=== PATIENT | female | born 1960 | race Caucasian/White ===

== ENCOUNTER 2019-03-28 00:26 | Observation (INO) | payer OTHER ==
[2019-03-28] MEDS ORDERED: Sodium Chloride 0.9% 10 ML Syringe FLUSH PRN (00:29)
[2019-03-28] MEDS ORDERED: LORazepam 2 MG/ML SDV IVPUSH ONE (00:32)
--- NOTE | 2019-03-28 01:18 | EDM.PDOC ---
ED HPI GENERAL MEDICAL PROBLEM - General Chief Complaint: General Stated Complaint: Not Feeling Well Time Seen by Provider: 03/28/19 00:26 Source of Information: Reports: Patient History Limitations: Reports: No Limitations - History of Present Illness INITIAL COMMENTS - FREE TEXT/NARRATIVE: Pt. presents to ER with complaints of weakness, fatigue, difficulty standing due to weakness in legs, "shock" sensations throughout her body, and anxiety/ generally feeling unwell. She states that she has been experiencing these symptoms almost constantly since starting Zoloft 3 days ago. She states that she has perviously been on zoloft and stopped taking it. She states that she tolerated the medication before. She complains of urinary frequency. She was seen for this in the clinic recently and states that her UA was negative. She states that she has not been experiencing any fever or chills. No cough. She does complain of some intermittent chest tightness since taking the medication, but was not experiencing it tonight. Pt. states that she was asleep and she woke with a "start" after being a sleep for several hours. She was concerned she had had a seizure or stoke, given the signs of neurological involvement. She states that the shock-like sensations are global and not unilateral. Denies any difficulty with unilateral weakness, confusion, difficulty with speech, or facial drooping. Onset: Today Onset Date: 03/25/19 Location: Reports: Generalized - Related Data Allergies Allergy/AdvReac Type Severity Reaction Status Date / Time morphine AdvReac Intermediate Nausea and Verified 03/28/19 01:06 Vomiting Home Meds: Home Meds Multivitamin [Daily Multiple Vitamin] 1 tab PO DAILY 05/31/16 [History] Cholecalciferol (Vitamin D3) [Vitamin D3] 2,000 unit PO DAILY 03/28/19 [History] Sertraline [Zoloft] 25 mg PO DAILY 03/28/19 [History] Past Medical History Other HEENT History: PRESBYOPIA. ASTIGMATISM. 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 Genitourinary History: Reports: None [employer] History: Musculoskeletal History: Reports: None Neurological History: Reports: None Psychiatric History: Reports: Anxiety, Depression Other Psychiatric History: TOBACCO USE DISORDER Endocrine/Metabolic History: Reports: None Immunologic History: Reports: None Oncologic (Cancer) History: Reports: None Dermatologic History: Reports: None - Past Surgical History Female Surgical History: Reports: Tubal Ligation ED ROS GENERAL - Review of Systems Review Of Systems: See Below Constitutional: Reports: Weakness, Fatigue HEENT: Reports: No Symptoms Respiratory: Reports: No Symptoms Cardiovascular: Reports: Chest Pain (chest pressure, resolved) Endocrine: Reports: Fatigue GI/Abdominal: Reports: Nausea : Reports: Frequency, Urgency Musculoskeletal: Reports: Muscle Stiffness Skin: Reports: No Symptoms Neurological: Reports: Weakness, Other (see above) Psychiatric: Reports: Anxiety, Depression Hematologic/Lymphatic: Reports: No Symptoms Immunologic: Reports: No Symptoms ED EXAM, GENERAL - Physical Exam Exam: See Below Exam Limited By: No Limitations General Appearance: Alert, WD/WN, No Apparent Distress Eye Exam: Bilateral Eye: EOMI, PERRL Throat/Mouth: Normal Inspection, Normal Lips, Normal Teeth, Normal Gums, Normal Oropharynx, Normal Voice, No Airway Compromise Head: Atraumatic, Normocephalic Neck: Normal Inspection, Supple, Non-Tender, Full Range of Motion Respiratory/Chest: No Respiratory Distress, Lungs Clear, Normal Breath Sounds, No Accessory Muscle Use, Chest Non-Tender Cardiovascular: Normal Peripheral Pulses, Regular Rate, Rhythm, No Edema, No Gallop, No JVD, No Murmur, No Rub Peripheral Pulses: 4+: Radial (R) GI/Abdominal: Normal Bowel Sounds, Soft, Non-Tender, No Organomegaly, No Distention, No Abnormal Bruit, No Mass, Pelvis Stable (Female) Exam: Deferred Rectal (Female) Exam: Deferred Back Exam: Normal Inspection, Full Range of Motion Extremities: Normal Inspection, Normal Range of Motion, Non-Tender, No Pedal Edema, Normal Capillary Refill, Other (muscle rigidity) Neurological: Alert, Oriented, CN II-XII Intact, Normal Cognition, Other ( patellar/brachioradialis hyperreflexia/clonus) Psychiatric: Normal Affect Skin Exam: Warm, Dry, Intact, Normal Color EKG INTERPRETATION Rhythm: NSR Anderson: Normal P-Wave: Present QRS: Normal ST-T: Normal QT: Normal Course - Orders/Labs/Meds Orders: Active Orders 24 hr Category Date Time Status EKG Documentation Completion [RC] STAT Care 03/28/19 00:30 Active Chest 1V Frontal [CR] Stat Exams 03/28/19 00:43 Ordered Head wo Cont [CT] Stat Exams 03/28/19 00:43 Ordered Blood Alcohol [ETHANOL BLOOD MEDICAL] [CHEM] Stat Lab 03/28/19 00:29 Ordered COMPREHENSIVE METABOLIC PN,CMP [CHEM] Stat Lab 03/28/19 00:29 Ordered CPK [CREATINE KINASE,CK] [CHEM] Stat Lab 03/28/19 00:29 Ordered CRP [C-REACTIVE PROTEIN] [CHEM] Stat Lab 03/28/19 00:29 Ordered INR,PT,PROTHROMBIN TIME [COAG] Stat Lab 03/28/19 00:29 Ordered MAGNESIUM [CHEM] Stat Lab 03/28/19 00:29 Ordered PHOSPHORUS [CHEM] Stat Lab 03/28/19 00:29 Ordered TROPONIN I [CHEM] Stat Lab 03/28/19 00:29 Ordered TSH ULTRASENSITIVE [CHEM] Stat Lab 03/28/19 00:29 Ordered UA W/MICROSCOPIC [URIN] Stat Lab 03/28/19 00:30 Ordered Sodium Chloride 0.9% [Saline Flush] Med 03/28/19 00:29 Active 10 ml FLUSH ASDIRECTED PRN Peripheral IV Insertion Adult [OM.PC] Routine Oth 03/28/19 00:30 Ordered Medication Orders Sodium Chloride (Saline Flush) 10 ml FLUSH ASDIRECTED PRN PRN Reason: Keep Vein Open Labs: Laboratory Tests 03/28/19 Range/Units 00:46 WBC 5.4 (4.0-10.0) x10^3/uL RBC 4.15 (4.00-5.50) x10^6/uL Hgb 13.6 (12.0-16.0) g/dL Hct 38.5 (33.0-47.0) % MCV 92.8 (78.0-93.0) fL MCH 32.8 H (26.0-32.0) pg MCHC 35.3 (32.0-36.0) g/dL RDW Coeff of Italo 12.3 (10.0-15.0) % Plt Count 344 (130-400) x10^3/uL Neut % (Auto) 66.5 (50.0-80.0) % Lymph % (Auto) 22.2 L (25.0-50.0) % Rooks % (Auto) 8.3 (2.0-11.0) % Eos % (Auto) 2.6 (0.0-4.0) % Baso % (Auto) 0.4 (0.2-1.2) % Meds: Medications Generic Name Dose Route Start Last Admin Trade Name Freq PRN Reason Stop Dose Admin Sodium Chloride 10 ml 03/28/19 00:29 Saline Flush FLUSH ASDIRECTED PRN Keep Vein Open Discontinued Medications Generic Name Dose Route Start Last Admin Trade Name Freq PRN Reason Stop Dose Admin Lorazepam 1 mg 03/28/19 00:32 03/28/19 00:51 Ativan IVPUSH 03/28/19 00:33 1 mg STAT ONE Administration - Radiology Interpretation Free Text/Narrative:: portable chest x-ray is negative. CT brain without contrast is negative. - Re-Assessments/Exams Free Text/Narrative Re-Assessment/Exam: 03/28/19 01:36 Pt. was given ativan 1 mg IV. Reported near complete resolution of her symptoms. Departure - Departure Time of Disposition: 01:53 Disposition: Refer to Observation Clinical Impression: Serotonin syndrome - Discharge Information Referrals: Katie Lay PA-C [Primary Care Provider] - - Problem List Review Problem List Initiated/Reviewed/Updated: Yes - My Orders Last 24 Hours: My Active Orders 03/28/19 00:29 Blood Alcohol [ETHANOL BLOOD MEDICAL] [CHEM] Stat COMPREHENSIVE METABOLIC PN,CMP [CHEM] Stat CPK [CREATINE KINASE,CK] [CHEM] Stat CRP [C-REACTIVE PROTEIN] [CHEM] Stat INR,PT,PROTHROMBIN TIME [COAG] Stat MAGNESIUM [CHEM] Stat PHOSPHORUS [CHEM] Stat TROPONIN I [CHEM] Stat TSH ULTRASENSITIVE [CHEM] Stat Sodium Chloride 0.9% [Saline Flush] 10 ml FLUSH ASDIRECTED PRN 03/28/19 00:30 EKG Documentation Completion [RC] STAT UA W/MICROSCOPIC [URIN] Stat Peripheral IV Insertion Adult [OM.PC] Routine 03/28/19 00:43 Chest 1V Frontal [CR] Stat Head wo Cont [CT] Stat - Assessment/Plan Admission H&P: Please use this note as an admission H&P Last 24 Hours: My Active Orders 03/28/19 00:29 Blood Alcohol [ETHANOL BLOOD MEDICAL] [CHEM] Stat COMPREHENSIVE METABOLIC PN,CMP [CHEM] Stat CPK [CREATINE KINASE,CK] [CHEM] Stat CRP [C-REACTIVE PROTEIN] [CHEM] Stat INR,PT,PROTHROMBIN TIME [COAG] Stat MAGNESIUM [CHEM] Stat PHOSPHORUS [CHEM] Stat TROPONIN I [CHEM] Stat TSH ULTRASENSITIVE [CHEM] Stat Sodium Chloride 0.9% [Saline Flush] 10 ml FLUSH ASDIRECTED PRN 03/28/19 00:30 EKG Documentation Completion [RC] STAT UA W/MICROSCOPIC [URIN] Stat Peripheral IV Insertion Adult [OM.PC] Routine 03/28/19 00:43 Chest 1V Frontal [CR] Stat Head wo Cont [CT] Stat Assessment:: Seratonin syndrome Plan: Pt. will be admitted observation. Will reevaluate throughout the day tomorrow. When she is consistently not having symptoms, she can be discharged. Will continue Ativan 1 mg IV every 4 hours as needed for agitation. She does have a mild UTI which we will treat with bactrim. She appears euvolemic at this time and she is able to swallow without difficulty, so no IV fluids at this time. She is a code 1.
[2019-03-28 01:28] LABS: CHLORIDE,CL 102 mmol/L (98-107); SODIUM,NA 142 mmol/L (136-145)
[2019-03-28 01:33] LABS: ANION GAP 17.6 mmol/L (10-20)
[2019-03-28] MEDS ORDERED: Sulfamethoxazole/Trimethoprim 800-160 MG Tab PO ONE (02:02)
--- NOTE | 2019-03-28 08:08 | CT ---
[id number] CT/CT Head WO IV EXAM: CT Head WO IV CLINICAL DATA: HEADACHE, SEIZURE ACTIVITY COMPARISON STUDY: None FINDINGS: No intracranial hemorrhage, extra-axial fluid collection, mass, or acute ischemia. No hydrocephalus. Paranasal sinuses and mastoid air cells are clear. IMPRESSION: Negative examination of the brain. Mohan Rodriguez MD 03/28/19 0807 Thank you for allowing us to participate in the care of your patient.
--- NOTE | 2019-03-28 08:08 | CR ---
[id number] RAD/RAD Chest PA or AP 1V EXAM: RAD Chest PA or AP 1V INDICATION: CHEST PRESSURE COMPARISON: None. DISCUSSION: Cardiomediastinal silhouette is normal in size and contour. No infiltrate, effusion, pneumothorax, or edema. IMPRESSION: No acute findings in the chest. Mohan Rodriguez MD 03/28/19 0808 Thank you for allowing us to participate in the care of your patient.
[2019-03-28] MEDS: Multivitamins with Iron/Calcium/Folic Acid/Minerals Tab PO SCH (08:16)
[2019-03-28] MEDS: Cholecalciferol (Vitamin D3) 1,000 Unit Tab PO SCH (08:16)
[2019-03-28] MEDS: LORazepam 2 MG/ML SDV IVPUSH PRN ×2 (08:19→21:49)
[2019-03-28] MEDS ORDERED: Sodium Chloride 0.9% 1,000 ML IV SCH (08:45)
--- NOTE | 2019-03-28 10:09 | PCM.PN ---
- General Info Date of Service: 03/28/19 Admission Dx/Problem (Free Text): Serotonin syndrome Functional Status: Reports: Pain Controlled, Tolerating Diet, Ambulating. Denies: New Symptoms - Review of Systems General: Reports: Weakness HEENT: Reports: No Symptoms Pulmonary: Reports: No Symptoms Cardiovascular: Reports: No Symptoms Gastrointestinal: Reports: Nausea Genitourinary: Reports: No Symptoms Musculoskeletal: Reports: No Symptoms Skin: Reports: No Symptoms Neurological: Reports: Dizziness, Difficulty Walking, Weakness Psychiatric: Reports: Anxiety - Patient Data Vitals - Most Recent: Last Vital Signs Temp 37.2 C 03/28/19 05:06 Pulse 64 03/28/19 05:06 Resp 14 03/28/19 05:06 BP 113/70 03/28/19 05:06 Pulse Ox 98 03/28/19 05:06 Weight - Most Recent: 62.959 kg I&O - Last 24 Hours: Intake & Output 03/27/19 03/28/19 03/28/19 22:59 06:59 14:59 Intake Total 250 Output Total 100 Balance 150 Lab Results Last 24 Hours: Laboratory Results - last 24 hr 03/28/19 03/28/19 03/28/19 Range/Units 00:46 00:46 00:46 WBC 5.4 (4.0-10.0) x10^3/uL RBC 4.15 (4.00-5.50) x10^6/uL Hgb 13.6 (12.0-16.0) g/dL Hct 38.5 (33.0-47.0) % MCV 92.8 (78.0-93.0) fL MCH 32.8 H (26.0-32.0) pg MCHC 35.3 (32.0-36.0) g/dL RDW Coeff of Italo 12.3 (10.0-15.0) % Plt Count 344 (130-400) x10^3/uL Neut % (Auto) 66.5 (50.0-80.0) % Lymph % (Auto) 22.2 L (25.0-50.0) % Davidson % (Auto) 8.3 (2.0-11.0) % Eos % (Auto) 2.6 (0.0-4.0) % Baso % (Auto) 0.4 (0.2-1.2) % PT 11.2 (10.0-12.8) SEC INR 1.0 L (2.0-3.5) Sodium 142 (136-145) mmol/L Potassium 3.6 (3.5-5.1) mmol/L Chloride 102 (98-107) mmol/L Carbon Dioxide 26 (21-32) mmol/L Anion Gap 17.6 (10-20) mmol/L BUN 20 H (7-18) mg/dL Creatinine 0.9 (0.55-1.02) mg/dL Est Cr Clr Drug Dosing TNP Estimated GFR (MDRD) > 60 Glucose 105 (74-106) mg/dL Calcium 9.4 (8.5-10.1) mg/dL Corrected Calcium 9.40 (8.5-10.1) mg/dL Phosphorus 3.7 (2.6-4.7) mg/dL Magnesium 2.0 (1.8-2.4) mg/dL Total Bilirubin 0.6 (0.2-1.0) mg/dL AST 12 L (15-37) U/L ALT 22 (14-59) U/L Alkaline Phosphatase 76 (46-116) U/L Creatine Kinase 29 (26-192) U/L Troponin I < 0.017 (<=0.056) ng/mL C-Reactive Protein 0.2 (<=0.9) mg/dL Total Protein 7.4 (6.4-8.2) g/dL Albumin 4.0 (3.4-5.0) g/dL Globulin 3.4 Albumin/Globulin Ratio 1.18 TSH, Ultra Sensitive 1.898 (0.358-3.74) uIU/mL Urine Color (YELLOW) Urine Appearance (CLEAR) Urine pH (5.0-8.0) Ur Specific Navarro Urine Protein (NEGATIVE) mg/dL Urine Glucose (UA) (NEGATIVE) mg/dL Urine Ketones (NEGATIVE) mg/dL Urine Occult Blood (NEGATIVE) Urine Nitrite (NEGATIVE) Urine Bilirubin (NEGATIVE) Urine Urobilinogen (0.2) EU/dL Ur Leukocyte Esterase (NEGATIVE) Urine RBC (NOT SEEN) /HPF Urine WBC (NOT SEEN) /HPF Ur Squamous Epith Cells (NEGATIVE) /HPF Urine Bacteria (NEGATIVE) /HPF Urine Mucus (NEGATIVE) /LPF Ethyl Alcohol < 3 (0-3) mg/dL 03/28/19 Range/Units 01:13 WBC (4.0-10.0) x10^3/uL RBC (4.00-5.50) x10^6/uL Hgb (12.0-16.0) g/dL Hct (33.0-47.0) % MCV (78.0-93.0) fL MCH (26.0-32.0) pg MCHC (32.0-36.0) g/dL RDW Coeff of Italo (10.0-15.0) % Plt Count (130-400) x10^3/uL Neut % (Auto) (50.0-80.0) % Lymph % (Auto) (25.0-50.0) % Davidson % (Auto) (2.0-11.0) % Eos % (Auto) (0.0-4.0) % Baso % (Auto) (0.2-1.2) % PT (10.0-12.8) SEC INR (2.0-3.5) Sodium (136-145) mmol/L Potassium (3.5-5.1) mmol/L Chloride (98-107) mmol/L Carbon Dioxide (21-32) mmol/L Anion Gap (10-20) mmol/L BUN (7-18) mg/dL Creatinine (0.55-1.02) mg/dL Est Cr Clr Drug Dosing Estimated GFR (MDRD) Glucose (74-106) mg/dL Calcium (8.5-10.1) mg/dL Corrected Calcium (8.5-10.1) mg/dL Phosphorus (2.6-4.7) mg/dL Magnesium (1.8-2.4) mg/dL Total Bilirubin (0.2-1.0) mg/dL AST (15-37) U/L ALT (14-59) U/L Alkaline Phosphatase (46-116) U/L Creatine Kinase (26-192) U/L Troponin I (<=0.056) ng/mL C-Reactive Protein (<=0.9) mg/dL Total Protein (6.4-8.2) g/dL Albumin (3.4-5.0) g/dL Globulin Albumin/Globulin Ratio TSH, Ultra Sensitive (0.358-3.74) uIU/mL Urine Color Yellow (YELLOW) Urine Appearance Clear (CLEAR) Urine pH 5.5 (5.0-8.0) Ur Specific Navarro 1.020 Urine Protein Negative (NEGATIVE) mg/dL Urine Glucose (UA) Negative (NEGATIVE) mg/dL Urine Ketones Trace H (NEGATIVE) mg/dL Urine Occult Blood Negative (NEGATIVE) Urine Nitrite Negative (NEGATIVE) Urine Bilirubin Small H (NEGATIVE) Urine Urobilinogen 0.2 (0.2) EU/dL Ur Leukocyte Esterase Trace H (NEGATIVE) Urine RBC Not seen (NOT SEEN) /HPF Urine WBC 0-5 (NOT SEEN) /HPF Ur Squamous Epith Cells Rare (NEGATIVE) /HPF Urine Bacteria Not seen (NEGATIVE) /HPF Urine Mucus Not seen (NEGATIVE) /LPF Ethyl Alcohol (0-3) mg/dL Med Orders - Current: Current Medications Cholecalciferol (Vitamin D3) 2,000 units PO DAILY [facility] Last Admin: 03/28/19 08:16 Dose: 2,000 units Sodium Chloride (Normal Saline) 1,000 mls @ 75 mls/hr IV ASDIRECTED SHANE Lorazepam (Ativan) 1 mg IVPUSH Q4H PRN PRN Reason: Anxiety Last Admin: 03/28/19 08:19 Dose: 1 mg Multivitamins/Minerals (Thera M Plus) 1 tab PO DAILY [facility] Last Admin: 03/28/19 08:16 Dose: 1 tab Sodium Chloride (Saline Flush) 10 ml FLUSH ASDIRECTED PRN PRN Reason: Keep Vein Open Trimethoprim/Sulfamethoxazole (Septra Ds) 1 tab PO BID [facility] Discontinued Medications Lorazepam (Ativan) 1 mg IVPUSH STAT ONE Stop: 03/28/19 00:33 Last Admin: 03/28/19 00:51 Dose: 1 mg Trimethoprim/Sulfamethoxazole (Septra Ds) 1 tab PO ONETIME ONE Stop: 03/28/19 02:03 Last Admin: 03/28/19 02:57 Dose: 1 tab - Exam General: Alert, Oriented, Cooperative, No Acute Distress HEENT: Pupils Equal, Pupils Reactive, EOMI Neck: Supple Lungs: Clear to Auscultation, Normal Respiratory Effort Cardiovascular: Regular Rate, Regular Rhythm GI/Abdominal Exam: Normal Bowel Sounds, Soft, Non-Tender, No Organomegaly, No Distention, No Abnormal Bruit, No Mass, Pelvis Stable Back Exam: Normal Inspection, Full Range of Motion Extremities: Normal Inspection, Normal Range of Motion, Non-Tender, No Pedal Edema, Normal Capillary Refill Skin: Warm, Dry, Intact Wound/Incisions: Healing Well Neurological: No New Focal Deficit Psy/Mental Status: Alert, Normal Affect, Normal Mood - Problem List & Annotations (1) Serotonin syndrome SNOMED Code(s): 212400811 Code(s): G25.79 - OTHER DRUG INDUCED MOVEMENT DISORDERS Status: Acute Priority: Medium Current Visit: Yes - Problem List Review Problem List Initiated/Reviewed/Updated: Yes - My Orders Last 24 Hours: My Active Orders 03/28/19 08:45 Sodium Chloride 0.9% [Normal Saline] 1,000 ml IV ASDIRECTED - Assessment Assessment:: Serotonin syndrome - Plan Plan:: In visiting with patient, she still feels slightly nauseated, some instability walking, and would like to stay another day which is reasonable. Will continue to monitor for any additional or worsening sequela of the serotonin syndrome, of course keep her off the Zoloft, hydrate gently, and pursue discharge tomorrow. Will also keep IV lorazepam as needed for symptom management. Continue bactrim for her UTI.
[2019-03-28] MEDS ORDERED: Sulfamethoxazole/Trimethoprim 800-160 MG Tab PO SCH (11:15)
[2019-03-28] MEDS: Sulfamethoxazole/Trimethoprim 800-160 MG Tab PO SCH ×2 (12:15→21:49)
[2019-03-29] MEDS: Multivitamins with Iron/Calcium/Folic Acid/Minerals Tab PO SCH (07:45)
[2019-03-29] MEDS: Cholecalciferol (Vitamin D3) 1,000 Unit Tab PO SCH (07:45)
[2019-03-29] MEDS: Sulfamethoxazole/Trimethoprim 800-160 MG Tab PO SCH (10:01)
[2019-03-29 10:08] VITALS: BP 101/68
--- NOTE | 2019-03-29 10:27 | PCM.DCSUM1 ---
Discharge Summary - Hospital Course Brief History: Patient admitted for serotonin syndrome and UTI on 03/28/19. Complained of weakness, anxiety, urinary frequency, general feeling of ill health. Started on Zoloft which she had previously tolerated, but had been having these feelings since she started the medication. Zoloft held, and symptoms have slowly resolved. Started on bactrim for her UTI. Diagnosis: Stroke: No - Discharge Data Discharge Date: 03/29/19 Discharge Disposition: Home, Self-Care 01 Condition: Good - Discharge Diagnosis/Problem(s) (1) Serotonin syndrome SNOMED Code(s): 657917993 ICD Code: G25.79 - OTHER DRUG INDUCED MOVEMENT DISORDERS Status: Acute Priority: Medium Current Visit: Yes (2) UTI (urinary tract infection) SNOMED Code(s): 09396431 ICD Code: N39.0 - URINARY TRACT INFECTION, SITE NOT SPECIFIED Status: Acute Current Visit: Yes Qualifiers: Urinary tract infection type: acute cystitis Hematuria presence: without hematuria Qualified Code(s): N30.00 - Acute cystitis without hematuria - Patient Summary/Data Recommended Follow-up Testing/Procedures: Please continue to take the bactrim for your urinary tract infection. You should follow up next week with Dr. Daley to initiate a new medication for anxiety and depression. Not to be Zoloft or other SSRI type medication You should also have your urine checked at that time to be sure the infection has cleared I will send you home with a prescription for oral ativan for anxiety. Take 1 tablet every 4-6 hours as needed for anxiety. I am not going to give any refills which is why it is important to see primary for the initiation of medical treatment. Eat and drink as tolerated Activity as tolerated - Patient Instructions Diet: Usual Diet as Tolerated Activity: As Tolerated - Discharge Plan *PRESCRIPTION DRUG MONITORING PROGRAM REVIEWED*: No *COPY OF PRESCRIPTION DRUG MONITORING REPORT IN PATIENT ARIA: No Prescriptions/Med Rec: LORazepam [Ativan] 1 mg PO Q4HR PRN #20 tablet PRN Reason: Anxiety Sulfamethoxazole/Trimethoprim [Septra DS] 1 tab PO BID 2 Days #4 tablet Home Medications: Home Meds Multivitamin [Daily Multiple Vitamin] 1 tab PO DAILY 05/31/16 [History] Cholecalciferol (Vitamin D3) [Vitamin D3] 2,000 unit PO DAILY 03/28/19 [History] LORazepam [Ativan] 1 mg PO Q4HR PRN #20 tablet 03/29/19 [Rx] Sulfamethoxazole/Trimethoprim [Septra DS] 1 tab PO BID 2 Days #4 tablet [Rx] Forms: ED Department Discharge Referrals: Katie Lay PA-C [Ordering Only Provider] - - Discharge Summary/Plan Comment DC Time >30 min.: Yes - General Info Date of Service: 03/29/19 Admission Dx/Problem (Free Text: Serotonin syndrome Functional Status: Reports: Tolerating Diet, Ambulating, Urinating - Review of Systems General: Reports: No Symptoms HEENT: Reports: No Symptoms Pulmonary: Reports: No Symptoms Cardiovascular: Reports: No Symptoms Gastrointestinal: Reports: No Symptoms Genitourinary: Reports: No Symptoms Musculoskeletal: Reports: No Symptoms Skin: Reports: No Symptoms Neurological: Reports: Weakness (still feels some weakness but is better) Psychiatric: Reports: Anxiety - Patient Data Vitals - Most Recent: Last Vital Signs Temp 35.7 C 03/29/19 10:00 Pulse 73 03/29/19 10:00 Resp 16 03/29/19 06:00 BP 101/68 03/29/19 10:00 Pulse Ox 98 03/29/19 10:00 Weight - Most Recent: 62.959 kg I&O - Last 24 hours: Intake & Output 03/28/19 03/29/19 03/29/19 22:59 06:59 14:59 Intake Total 664 3800 420 Output Total 1200 1200 Balance -536 2600 420 Med Orders - Current: Current Medications Cholecalciferol (Vitamin D3) 2,000 units PO DAILY [facility] Last Admin: 03/29/19 07:45 Dose: 2,000 units Sodium Chloride (Normal Saline) 1,000 mls @ 75 mls/hr IV ASDIRECTED SHANE Last Admin: 03/28/19 08:50 Dose: 75 mls/hr Lorazepam (Ativan) 1 mg IVPUSH Q4H PRN PRN Reason: Anxiety Last Admin: 03/28/19 21:49 Dose: 1 mg Multivitamins/Minerals (Thera M Plus) 1 tab PO DAILY [facility] Last Admin: 03/29/19 07:45 Dose: 1 tab Sodium Chloride (Saline Flush) 10 ml FLUSH ASDIRECTED PRN PRN Reason: Keep Vein Open Last Admin: 03/28/19 21:49 Dose: 10 ml Trimethoprim/Sulfamethoxazole (Septra Ds) 1 tab PO BID@1000,2200 [facility] Stop: 03/30/19 10:01 Last Admin: 03/29/19 10:01 Dose: 1 tab Discontinued Medications Lorazepam (Ativan) 1 mg IVPUSH STAT ONE Stop: 03/28/19 00:33 Last Admin: 03/28/19 00:51 Dose: 1 mg Trimethoprim/Sulfamethoxazole (Septra Ds) 1 tab PO ONETIME ONE Stop: 03/28/19 02:03 Last Admin: 03/28/19 02:57 Dose: 1 tab Trimethoprim/Sulfamethoxazole (Septra Ds) 1 tab PO BID [facility] Stop: 03/30/19 20:01 - Exam General: Reports: Alert, Oriented HEENT: Reports: Pupils Equal, Pupils Reactive, EOMI, Mucous Membr. Moist/The [place] Neck: Reports: Supple Lungs: Reports: Clear to Auscultation, Normal Respiratory Effort Cardiovascular: Reports: Regular Rate, Regular Rhythm GI/Abdominal Exam: Normal Bowel Sounds, Soft, Non-Tender, No Organomegaly, No Distention, No Abnormal Bruit, No Mass, Pelvis Stable Back Exam: Reports: Normal Inspection, Full Range of Motion Extremities: Normal Inspection, Normal Range of Motion, Non-Tender, No Pedal Edema, Normal Capillary Refill Skin: Reports: Warm, Dry, Intact Wound/Incisions: Reports: Healing Well Neurological: Reports: No New Focal Deficit Psy/Mental Status: Reports: Alert, Normal Affect, Normal Mood
== END 2019-03-29 11:10 | disposition home or self-care (01) ==
LOC: VM.ED 00:26 → VM.MS 02:10
PROVIDERS: ADMIT Physician Assistant; ATTEND Physician Assistant
DX: G25.79 Other drug induced movement disorders (principal); T43.225A Adverse effect of selective serotonin reuptake inhibitors, initial encounter; N30.00 Acute cystitis without hematuria; F41.9 Anxiety disorder, unspecified; F32.9 Major depressive disorder, single episode, unspecified; F17.200 Nicotine dependence, unspecified, uncomplicated; Z88.5 Allergy status to narcotic agent; Z79.899 Other long term (current) drug therapy
CPT/HCPCS: 36415; 70450; 71045; 80053; 81001; 82550; 83735; 84100; 84443; 84484; 85025; 85610; 86140; 93005; 96361; 96374; 96376; 99285-25; A9270-GY; G0378; G0480; J2060; J7030

== ENCOUNTER 2020-11-20 12:44 | Emergency (ER) | payer OTHER ==
[2020-11-20] MEDS ORDERED: Sodium Chloride 0.9% 10 ML Syringe FLUSH PRN (13:16)
--- NOTE | 2020-11-20 13:16 | EDM.PDOC ---
ED HPI GENERAL MEDICAL PROBLEM - General Stated Complaint: LIGHT HEADED Time Seen by Provider: 11/20/20 13:05 Source of Information: Reports: Patient History Limitations: Reports: No Limitations - History of Present Illness INITIAL COMMENTS - FREE TEXT/NARRATIVE: Patient comes emergency department today from home with complaints of vertigo type symptoms. She relates that approximately 10:00 this morning she was sitting in her chair when she suddenly turned her head to the right and she felt like the room was spinning and her head was spinning. She stood up and started to walk and the symptoms have improved although when she went to sit down to go to the bathroom leaning forward she had a very similar sensation of the room spinning her head spinning and she was nauseous. She has a headache in the very base of the occiput of her scalp goal posteriorly. She has had no recent falls trauma or head injury. She has no history of hypertension or hyperglycemia or hypercholesteremia. She has a [id number] smoker who quit a number of years ago she reports. She has had no chest pain no shortness of breath or difficulty breathing. No weakness or paresthesias of her upper or lower extremities. She just states that her legs feel shaky and weird but the sensation is normal. She is able to ambulate without difficulty without any leaning. She has had no palpitations weakness dizziness lightheadedness. No cough or congestion. No abdominal pain. She does complain of nausea without vomiting. She relates that she feels like she needs to urinate on a regular basis. No hematuria dysuria or foul-smelling urine. No fever no chills. No cough or congestion. No flank pain. No black or tarry stools. She is not on any antiplatelets or anticoagulation. No COVID symptoms NO COVID exposure. - Related Data Allergies Allergy/AdvReac Type Severity Reaction Status Date / Time sertraline Allergy Intermediate Other Verified 11/20/20 16:25 morphine AdvReac Intermediate Nausea and Verified 11/20/20 16:25 Vomiting Home Meds: Home Meds Multivitamin [Daily Multiple Vitamin] 1 tab PO DAILY 05/31/16 [History] Cholecalciferol (Vitamin D3) [Vitamin D3] 2,000 unit PO DAILY 03/28/19 [History] Past Medical History HEENT History: Reports: Other (See Below) Other HEENT History: PRESBYOPIA. ASTIGMATISM. 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: Reports: None Neurological History: Reports: None Psychiatric History: Reports: Anxiety, Depression Other Psychiatric History: TOBACCO USE DISORDER Endocrine/Metabolic History: Reports: None Immunologic History: Reports: None Oncologic (Cancer) History: Reports: None Dermatologic History: Reports: None - Past Surgical History Head Surgeries/Procedures: Reports: None Female Surgical History: Reports: Tubal Ligation Social & Family History - Family History Respiratory: Reports: COPD GI: Reports: Other (See Below) Other GI Family History: polyps Neurological: Reports: CVA Psychiatric: Reports: Anxiety Oncologic: Reports: Lung - Caffeine Use Caffeine Use: Reports: Coffee Caffeine Use Comment: Coffee before work. ED ROS GENERAL - Review of Systems Review Of Systems: Comprehensive ROS is negative, except as noted in HPI. ED EXAM, NEURO - Physical Exam Exam: See Below Exam Limited By: No Limitations General Appearance: Alert, WD/WN, No Apparent Distress Eye Exam: Bilateral Eye: EOMI, PERRL Ears: Normal External Exam, Normal TMs Nose: Normal Inspection, Normal Mucosa, No Blood Throat/Mouth: Normal Inspection, Normal Lips, Normal Teeth, Normal Gums, Normal Voice, No Airway Compromise Head Exam: Atraumatic, Normocephalic Neck: Normal Inspection, Supple, Non-Tender, Full Range of Motion Respiratory/Chest: No Respiratory Distress, Lungs Clear, Normal Breath Sounds, No Accessory Muscle Use, Chest Non-Tender Cardiovascular: Normal Peripheral Pulses, Regular Rate, Rhythm GI/Abdominal: Normal Bowel Sounds, Soft, Non-Tender, Pelvis Stable (Female) Exam: Deferred Rectal (Female) Exam: Deferred Neurological: Alert, Normal Mood/Affect, Normal Dorsiflexion, CN II-XII Intact, Normal Plantar Flexion, Normal Gait, Normal Reflexes, No Motor/Sensory Deficits, Oriented x 3, Other ([place] negative. NIH Negative. ) DTR: 2+: Bicep (R), Bicep (L), Tricep (R), Tricep (L), Patella (R), Patella (L), Achilles (R), Achilles (L) Back Exam: Normal Inspection, Full Range of Motion Extremities: Normal Inspection, Normal Range of Motion, Non-Tender, No Pedal Edema, Normal Capillary Refill Psychiatric: Normal Affect, Normal Mood Skin Exam: Warm, Dry, Intact, Normal Color, No Rash #1 Interpretation EKG Date: 11/20/20 Time: 13:09 Rhythm: NSR Rate (Beats/Min): 55 [place]: Normal P-Wave: Present QRS: Normal ST-T: Normal QT: Normal Course - Orders/Labs/Meds Orders: Active Orders 24 hr Category Date Time Status EKG Documentation Completion [RC] STAT Care 11/20/20 13:16 Active PT Evaluation and Treatment [CONS] Routine Cons 11/20/20 14:14 Active Sodium Chloride 0.9% [Saline Flush] Med 11/20/20 13:16 Active 10 ml FLUSH ASDIRECTED PRN Peripheral IV Insertion Adult [OM.PC] Stat Oth 11/20/20 13:16 Ordered Medication Orders Sodium Chloride (Saline Flush) 10 ml FLUSH ASDIRECTED PRN PRN Reason: Keep Vein Open Labs: Laboratory Tests 11/20/20 11/20/20 11/20/20 Range/Units 13:10 13:10 13:10 WBC 4.0 (4.0-10.0) x10^3/uL RBC 2.52 L (4.00-5.50) x10^6/uL Hgb 12.8 (12.0-16.0) g/dL Hct 25.2 L (33.0-47.0) % MCV 100.0 H D (78.0-93.0) fL MCH 50.8 H (26.0-32.0) pg MCHC 50.8 H (32.0-36.0) g/dL RDW Coeff of [place]alo (10.0-15.0) % Plt Count 293 (130-400) x10^3/uL Add Manual Diff Yes Neutrophils % (Manual) 76 (50-80) % Lymphocytes % (Manual) 12 L (25-50) % Reactive Lymphs % 5 H (0) % Monocytes % (Manual) 6 (2-11) % Basophils % (Manual) 1 (0-1) % Vacuolated Monocytes Rare Platelet Estimate Adequate Target Cells Rare RBC Morph Comment See note Sodium 143 (136-145) mmol/L Potassium 3.8 (3.5-5.1) mmol/L Chloride 106 (98-107) mmol/L Carbon Dioxide 28 (21-32) mmol/L Anion Gap 12.8 (5-15) mmol/L BUN 14 (7-18) mg/dL Creatinine 0.8 (0.55-1.02) mg/dL Est Cr Clr Drug Dosing TNP Estimated GFR (MDRD) > 60 Glucose 96 (74-106) mg/dL Calcium 9.2 (8.5-10.1) mg/dL Corrected Calcium 9.20 (8.5-10.1) mg/dL Total Bilirubin 0.5 (0.2-1.0) mg/dL AST 19 (15-37) U/L ALT 24 (14-59) U/L Alkaline Phosphatase 83 (46-116) U/L Troponin I < 0.017 (<=0.056) ng/mL Total Protein 7.2 (6.4-8.2) g/dL Albumin 4.0 (3.4-5.0) g/dL Globulin 3.2 Albumin/Globulin Ratio 1.25 TSH, Ultra Sensitive 0.516 (0.358-3.74) uIU/mL Urine Color (YELLOW) Urine Appearance (CLEAR) Urine pH (5.0-8.0) Ur Specific [place] Urine Protein (NEGATIVE) mg/dL Urine Glucose (UA) (NEGATIVE) mg/dL Urine Ketones (NEGATIVE) mg/dL Urine Occult Blood (NEGATIVE) Urine Nitrite (NEGATIVE) Urine Bilirubin (NEGATIVE) Urine Urobilinogen (0.2) EU/dL Ur Leukocyte Esterase (NEGATIVE) 11/20/20 Range/Units 13:30 WBC (4.0-10.0) x10^3/uL RBC (4.00-5.50) x10^6/uL Hgb (12.0-16.0) g/dL Hct (33.0-47.0) % MCV (78.0-93.0) fL MCH (26.0-32.0) pg MCHC (32.0-36.0) g/dL RDW Coeff of [place] (10.0-15.0) % Plt Count (130-400) x10^3/uL Add Manual Diff Neutrophils % (Manual) (50-80) % Lymphocytes % (Manual) (25-50) % Reactive Lymphs % (0) % Monocytes % (Manual) (2-11) % Basophils % (Manual) (0-1) % Vacuolated Monocytes Platelet Estimate Target Cells RBC Morph Comment Sodium (136-145) mmol/L Potassium (3.5-5.1) mmol/L Chloride (98-107) mmol/L Carbon Dioxide (21-32) mmol/L Anion Gap (5-15) mmol/L BUN (7-18) mg/dL Creatinine (0.55-1.02) mg/dL Est Cr Clr Drug Dosing Estimated GFR (MDRD) Glucose (74-106) mg/dL Calcium (8.5-10.1) mg/dL Corrected Calcium (8.5-10.1) mg/dL Total Bilirubin (0.2-1.0) mg/dL AST (15-37) U/L ALT (14-59) U/L Alkaline Phosphatase (46-116) U/L Troponin I (<=0.056) ng/mL Total Protein (6.4-8.2) g/dL Albumin (3.4-5.0) g/dL Globulin Albumin/Globulin Ratio TSH, Ultra Sensitive (0.358-3.74) uIU/mL Urine Color Yellow (YELLOW) Urine Appearance Clear (CLEAR) Urine pH 7.0 (5.0-8.0) Ur Specific [place] 1.010 Urine Protein Negative (NEGATIVE) mg/dL Urine Glucose (UA) Negative (NEGATIVE) mg/dL Urine Ketones Negative (NEGATIVE) mg/dL Urine Occult Blood Negative (NEGATIVE) Urine Nitrite Negative (NEGATIVE) Urine Bilirubin Negative (NEGATIVE) Urine Urobilinogen 0.2 (0.2) EU/dL Ur Leukocyte Esterase Negative (NEGATIVE) Meds: Medications Generic Name Dose Route Start Last Admin Trade Name Freq PRN Reason Stop Dose Admin Sodium Chloride 10 ml 11/20/20 13:16 Saline Flush FLUSH ASDIRECTED PRN Keep Vein Open Discontinued Medications Generic Name Dose Route Start Last Admin Trade Name Freq PRN Reason Stop Dose Admin Diazepam 2.5 mg 11/20/20 14:21 11/20/20 14:37 Valium IVPUSH 11/20/20 14:22 2.5 mg STAT ONE Administration Lactated Ringer's 1,000 mls @ 999 mls/hr 11/20/20 13:23 11/20/20 13:25 Ringers, Lactated IV 11/20/20 14:23 999 mls/hr ONETIME ONE Administration Ondansetron HCl 4 mg 11/20/20 14:46 11/20/20 14:58 Zofran IV 11/20/20 14:47 4 mg ONETIME ONE Administration - Radiology Interpretation Free Text/Narrative:: CT of the head no acute intracranial findings. - Re-Assessments/Exams Free Text/Narrative Re-Assessment/Exam: 11/20/20 This really is the sequelae i believe of BPPV. I completed the [place] Hallpike which was negative. I then had physical therapy come down and repeat the difficult Lehigh maneuver for BPPV as well as horizontal canal testing which was negative as well. Concerns for more central neurological findings. A CT of the head was completed that was negative. 2.5 mg of Valium IV push with really not much improvement of her symptoms. She still complains of nausea. Zofran 4 mg IV push. She has for the past 2 years complained of some generalized tightness and funny sensation of her upper or lower extremities with concerns of hyperparathyroid with normocalcemia. Her calcium is normal today. Her laboratory evaluation is really unremarkable at this time. With the negative physical therapy evaluation for her vertigo type symptoms which are more positional by exam as well as story it is unlikely for her to have central concerns although I called and spoke with Dr. Urena the neurologist operations specialist at [facility] at the stroke center. HPI ER COURSE findings and concerns were relayed to him. He would recommend an MRI today with transfer to [facility]. I discussed the finding and concerns with the patient as well as her brother in the room. We will transfer her at this time to [facility] in [place] for further evaluation and MRI to ensure that this is not some type of posterior circulation stroke or other pathology. She is very comfortable with this plan and happy. She was transferred by ambulance. Departure - Departure Time of Disposition: 16:29 Disposition: DC/Tfer to Acute Hospital 02 Clinical Impression: Vertigo - Discharge Information Referrals: Gustavo Chavez MD [Primary Care Provider] - Forms: Interfacility Transfer EMTALA - My Orders Last 24 Hours: My Active Orders 11/20/20 13:16 EKG Documentation Completion [RC] STAT Sodium Chloride 0.9% [Saline Flush] 10 ml FLUSH ASDIRECTED PRN Peripheral IV Insertion Adult [OM.PC] Stat 11/20/20 14:14 PT Evaluation and Treatment [CONS] Routine - Assessment/Plan Last 24 Hours: My Active Orders 11/20/20 13:16 EKG Documentation Completion [RC] STAT Sodium Chloride 0.9% [Saline Flush] 10 ml FLUSH ASDIRECTED PRN Peripheral IV Insertion Adult [OM.PC] Stat 11/20/20 14:14 PT Evaluation and Treatment [CONS] Routine Assessment:: Vertigo without findings of peripheral BPPV by exam. Plan: Transfer to [facility] for further evaluation and MRI.
[2020-11-20] MEDS ORDERED: Lactated Ringers 1,000 ML IV ONE (13:23)
[2020-11-20 13:47] LABS: CHLORIDE,CL 106 mmol/L (98-107); SODIUM,NA 143 mmol/L (136-145)
[2020-11-20 13:48] LABS: ANION GAP 12.8 mmol/L (5-15)
[2020-11-20] MEDS ORDERED: Ondansetron 4 MG/2 ML SDV IV ONE (14:46)
--- NOTE | 2020-11-20 14:49 | CT ---
[id number] CT/CT Head WO IV EXAM: CT Head WO IV CLINICAL DATA: VERTIGO COMPARISON STUDY: None FINDINGS: No intracranial hemorrhage, extra-axial fluid collection, mass, or acute ischemia. Soft tissues are unremarkable. Paranasal sinuses and mastoid air cells are clear. IMPRESSION: No acute intracranial findings. Jama Albert DO 11/20/20 1447 Thank you for allowing us to participate in the care of your patient.
[2020-11-20 17:54] VITALS: BP 138/72; PULSE 62
== END 2020-11-20 16:35 | disposition short-term general hospital (02) ==
LOC: VM.ED 12:44
DX: R42 Dizziness and giddiness (principal); Z88.8 Allergy status to other drugs, medicaments and biological substances; Z88.5 Allergy status to narcotic agent; Z72.0 Tobacco use
CPT/HCPCS: 70450; 80053; 81003; 84443; 84484; 85025; 93005; 93010; 96374; 96375; 99284; 99285-25; J2405; J3360; J7120

== ENCOUNTER 2021-04-10 13:46 | Emergency (ER) | payer OTHER ==
[2021-04-10] MEDS ORDERED: Sodium Chloride 0.9% 10 ML Syringe FLUSH PRN (13:56)
[2021-04-10 14:56] LABS: CHLORIDE,CL 106 mmol/L (98-107); SODIUM,NA 144 mmol/L (136-145)
[2021-04-10 14:57] LABS: ANION GAP 15.5 mmol/L (5-15)
[2021-04-10] MEDS: Propranolol 20 MG Tab PO ONE (14:59)
[2021-04-10] MEDS: LORazepam 0.5 MG Tab PO ONE (14:59)
[2021-04-10 15:34] VITALS: BP 122/65; PULSE 70
--- NOTE | 2021-04-10 15:54 | EDM.PDOC ---
ED HPI GENERAL MEDICAL PROBLEM - General Chief Complaint: General Stated Complaint: shakey anxious Time Seen by Provider: 04/10/21 13:55 Source of Information: Reports: Patient History Limitations: Reports: No Limitations - History of Present Illness INITIAL COMMENTS - FREE TEXT/NARRATIVE: Patient comes emergency department today from home with her [id number] with concerns of anxiety shakiness tremor. This patient has been struggling with anxiety shakiness just overall not feeling well racing thoughts clouded sensorium since 2 weeks ago when she had her parathyroid surgery in [place]. She had 3 of the 4 parathyroid glands removed surgically in [place] about 2 weeks ago. She has been struggling with hyper thyroiditis since the surgery. These are all the same symptoms that she has been having since her surgery 2 weeks ago. She was seen in the clinic just a couple of days ago and was told to start on propranolol and hydroxyzine for the anxiety and the hyperthyroid state that she is in that they feel is most likely due to the manipulation of the thyroid following her parathyroid surgery. She has not tried her propranolol or the hydroxyzine at home for her symptoms. She was told that it could drop her blood pressure and she is worried about taking those medications. She does feel like she has a racing heart sensation or pounding sensation in her chest. She has no chest pain. No syncope. No vertigo. No shortness of breath or difficulty breathing. She never has any chest pressure. No generalized weakness. She does complain of a very fine tremor constantly. No abdominal pain nausea or vomiting. She is not currently taking any thyroid supplementation. - Related Data Allergies Allergy/AdvReac Type Severity Reaction Status Date / Time sertraline Allergy Intermediate Other Verified 04/10/21 14:13 morphine AdvReac Intermediate Nausea and Verified 04/10/21 14:13 Vomiting Home Meds: Home Meds Acetaminophen [Tylenol Arthritis] 650 mg PO DAILY PRN 04/10/21 [History] Propranolol [Inderal] 20 mg PO Q8H PRN 04/10/21 [History] hydrOXYzine HCL [Atarax] 25 mg PO Q6H PRN 04/10/21 [History] ondansetron HCL [Zofran] 4 mg PO Q12H PRN 04/10/21 [History] Past Medical History HEENT History: Reports: Other (See Below) Other HEENT History: PRESBYOPIA. ASTIGMATISM. 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 Neurological History: Reports: None Psychiatric History: Reports: Anxiety, Depression Other Psychiatric History: TOBACCO USE DISORDER Endocrine/Metabolic History: Reports: Hyperthyroidism, Other (See Below) Other Endocrine/Metabolic History: parathyroid surgery Immunologic History: Reports: None Oncologic (Cancer) History: Reports: None Dermatologic History: Reports: None - Infectious Disease History Infectious Disease History: Reports: None - Past Surgical History Head Surgeries/Procedures: Reports: None Cardiovascular Surgical History: Reports: None GI Surgical History: Reports: Colonoscopy, Other (See Below) Other GI Surgeries/Procedures: Colonoscopy last done 2019 Female Surgical History: Reports: Tubal Ligation Endocrine Surgical History: Reports: Parathyroidectomy Musculoskeletal Surgical History: Reports: Shoulder Surgery, Other (See Below) Other Musculoskeletal Surgeries/Procedures:: Shoulder surgery 2005 - Right rotator cuff repair Oncologic Surgical History: Reports: None Social & Family History - Family History Respiratory: Reports: COPD GI: Reports: Other (See Below) Other GI Family History: polyps Neurological: Reports: CVA Psychiatric: Reports: Anxiety Oncologic: Reports: Lung - Tobacco Use Tobacco Use Status *Q: Former Tobacco User Used Tobacco, but Quit: Yes Month/Year Tobacco Last Used: 2019 - Caffeine Use Caffeine Use: Reports: Coffee Caffeine Use Comment: Coffee before work. ED ROS GENERAL - Review of Systems Review Of Systems: Comprehensive ROS is negative, except as noted in HPI. ED EXAM, GENERAL - Physical Exam Exam: See Below Exam Limited By: No Limitations General Appearance: Alert, WD/WN, Anxious Eye Exam: Bilateral Eye: EOMI, Nystagmus (Fine horizontal nystagmus), PERRL Ears: Normal External Exam, Normal TMs Nose: Normal Inspection, Normal Mucosa Throat/Mouth: Normal Inspection, Normal Lips, Normal Oropharynx, Normal Voice Head: Atraumatic, Normocephalic Neck: Normal Inspection, Supple, Non-Tender, Full Range of Motion Respiratory/Chest: No Respiratory Distress, Lungs Clear, Normal Breath Sounds, No Accessory Muscle Use, Chest Non-Tender Cardiovascular: Normal Peripheral Pulses, Regular Rate, Rhythm, No Murmur GI/Abdominal: Normal Bowel Sounds, Soft, Non-Tender (Female) Exam: Deferred Rectal (Female) Exam: Deferred Back Exam: Normal Inspection, Full Range of Motion Extremities: Normal Inspection, Normal Range of Motion, No Pedal Edema, Normal Capillary Refill Neurological: Alert, Oriented, CN II-XII Intact, Normal Cognition, Normal Gait, Normal Reflexes, No Motor/Sensory Deficits, Other (She does have a fine tremor at rest.) Psychiatric: Anxious (This patient is quite anxious. Her eyes are darting around the room. She is constantly moving and fidgeting in the bed.) Skin Exam: Warm, Dry, Intact, Normal Color, No Rash Course - Vital Signs Last Recorded V/S: Last Vital Signs Temp 97.2 F 04/10/21 13:50 Pulse 70 04/10/21 15:33 Resp 16 04/10/21 15:33 BP 122/65 04/10/21 15:33 Pulse Ox 97 04/10/21 15:33 - Orders/Labs/Meds Orders: Active Orders 24 hr Category Date Time Status T3 UPTAKE [REF] Stat Lab 04/10/21 14:00 Received Peripheral IV Insertion Adult [OM.PC] Stat Oth 04/10/21 13:55 Ordered Labs: Laboratory Tests 04/10/21 04/10/21 04/10/21 Range/Units 14:00 14:00 14:00 WBC 5.3 (4.0-10.0) x10^3/uL RBC 3.56 L (4.00-5.50) x10^6/uL Hgb 13.0 (12.0-16.0) g/dL Hct 34.2 (33.0-47.0) % MCV 96.1 H D (78.0-93.0) fL MCH 36.5 H (26.0-32.0) pg MCHC 38.0 H (32.0-36.0) g/dL RDW Coeff of [place] 13.8 (10.0-15.0) % Plt Count 351 (130-400) x10^3/uL Neut % (Auto) 73.9 (50.0-80.0) % Lymph % (Auto) 19.7 L (25.0-50.0) % Phillips % (Auto) 4.5 (2.0-11.0) % Eos % (Auto) 1.7 (0.0-4.0) % Baso % (Auto) 0.2 (0.2-1.2) % ESR 14 (0-20) mm/hr Sodium 144 (136-145) mmol/L Potassium 3.5 (3.5-5.1) mmol/L Chloride 106 (98-107) mmol/L Carbon Dioxide 26 (21-32) mmol/L Anion Gap 15.5 H (5-15) mmol/L BUN 13 (7-18) mg/dL Creatinine 0.9 (0.55-1.02) mg/dL Est Cr Clr Drug Dosing 56.68 mL/min Estimated GFR (MDRD) > 60 Glucose 160 H (70-99) mg/dL Calcium 8.6 (8.5-10.1) mg/dL Corrected Calcium 8.9 (8.5-10.1) mg/dL Magnesium 2.0 (1.8-2.4) mg/dL Total Bilirubin 0.3 (0.2-1.0) mg/dL AST 12 L (15-37) U/L ALT 21 (14-59) U/L Alkaline Phosphatase 86 (46-116) U/L C-Reactive Protein < 0.2 (<=0.9) mg/dL Total Protein 6.9 (6.4-8.2) g/dL Albumin 3.6 (3.4-5.0) g/dL Globulin 3.3 Albumin/Globulin Ratio 1.09 TSH, Ultra Sensitive 0.588 (0.358-3.74) uIU/mL Meds: Medications Discontinued Medications Generic Name Dose Route Start Last Admin Trade Name Freq PRN Reason Stop Dose Admin Lorazepam 0.5 mg 04/10/21 14:45 04/10/21 14:59 Lorazepam 0.5 Mg Tab PO 04/10/21 14:46 0.5 mg ONETIME ONE Administration Propranolol HCl 20 mg 04/10/21 14:45 04/10/21 14:59 Propranolol 20 Mg Tab PO 04/10/21 14:46 20 mg ONETIME ONE Administration Sodium Chloride 10 ml 04/10/21 13:56 Sodium Chloride 0.9% 10 Ml Syringe FLUSH ASDIRECTED PRN Keep Vein Open - Re-Assessments/Exams Free Text/Narrative Re-Assessment/Exam: I did review the patient's chart in [facility] through [facility] and her last TSH level was 0.01 which is consistent with severe hyperthyroidism. And in the presence of the recent surgery makes sense for her hyper thyroiditis. He continues to have the same symptoms that she has had since surgery and she has not taken any the medications to counteract the side effects of her acute hyper thyroiditis. Laboratory evaluation was drawn. Her TSH today is actually quite improved from the clinic's TSH she is up to 0.588 from 04-02-21 where she was 0.01. T3 and T4 pending. She was given a dose of 20 mg of propranolol which is the same dose she is supposed to take at home as well as a 0.5 mg dose of Ativan in the emergency department. She did feel quite a bit better relaxed calm and her tremor is quite a bit improved her racing heart sensation has resolved. Although she was never tachycardic in the emergency department nor did she ever have any chest pain.. I gave her reassurance that it appears that her hyper thyroiditis is somewhat improving as her TSH level is within normal range. This may take a little bit for the symptoms of her hyperthyroid state to resolve. Therefore the medication that she was previously prescribed in the clinic and has not used yet she should try to use at this time for her symptoms. I would start out using it more scheduled and see how she feels just twice a day and either increase or decrease as needed. She does have an appointment with her primary care on Monday for a follow-up and recheck. Discharge directions as below are explained to the patient she was comfortable with this plan and her questions were answered. Departure - Departure Time of Disposition: 15:49 Disposition: Home, Self-Care 01 Clinical Impression: Hyperthyroiditis - Discharge Information Instructions: Hyperthyroidism Referrals: Aimee Perez NP [Primary Care Provider] - Forms: ED Department Discharge Additional Instructions: Your labs are looking better today for your TSH. I would try the Propanolol twice daily and see how you feel. This is a very small dose and you may have to titrate it up or down depends on how you feel. See Aimee RAMIREZ in the clinic next week as planned. Have the nurse from the clinic get our records from the ED visit today. Use the hydroxyzine as needed for acute episodes of anxiety and shakiness. Return to the ED if new or worsening symptoms. Sepsis Event Note (ED) - Evaluation Sepsis Screening Result: No Definite Risk - My Orders Last 24 Hours: My Active Orders 04/10/21 13:55 Peripheral IV Insertion Adult [OM.PC] Stat 04/10/21 14:00 T3 UPTAKE [REF] Stat - Assessment/Plan Last 24 Hours: My Active Orders 04/10/21 13:55 Peripheral IV Insertion Adult [OM.PC] Stat 04/10/21 14:00 T3 UPTAKE [REF] Stat
== END 2021-04-10 16:15 | disposition home or self-care (01) ==
LOC: VM.ED 13:46
DX: E05.90 Thyrotoxicosis, unspecified without thyrotoxic crisis or storm (principal); Z88.5 Allergy status to narcotic agent; Z88.8 Allergy status to other drugs, medicaments and biological substances; Z79.899 Other long term (current) drug therapy; Z87.891 Personal history of nicotine dependence
CPT/HCPCS: 80053; 83735; 84443; 84479; 85025; 85652; 86140; 99283; 99284; A9270-GY

== ENCOUNTER → 2021-05-24 | Day surgery (SDC) | payer OTHER ==
[~2021-05-24] MED LIST: Lactated Ringers 1,000 ML IV SCH; Propofol 200 MG/20 ML SDV ONE; Sodium Chloride 0.9% 10 ML Syringe FLUSH PRN; fentaNYL 100 MCG/2 ML SDV ONE
[2021-05-24 12:58] VITALS: BP 97/48; PULSE 58
--- NOTE | 2021-05-24 14:17 | OR ---
PREOPERATIVE DIAGNOSIS: Screening colonoscopy. POSTOPERATIVE DIAGNOSIS: Screening colonoscopy. PROCEDURE PERFORMED: Screening colonoscopy. COMPLICATIONS: None. SPECIMENS: None. ESTIMATED BLOOD LOSS: 5 mL. PROCEDURE IN DETAIL: This was done in the endoscopy suite. Sedation was given per Anesthesia. She was placed in left lateral position. First, a rectal exam was done and was normal. Scope was introduced into the rectum and slowly advanced to the rectum, sigmoid, descending, transverse, and ascending colon until the cecum was reached. Upon reaching the cecum, scope was slowly withdrawn looking at all mucosal surfaces on the way out. No mucosal abnormalities, lesions, or polyps were noted. FINAL DIAGNOSIS: Normal colonoscopy. BKD: 05/24/2021 12:27:58 MODL: 05/24/2021 14:01:18 /[id number]
== END ==
LOC: VM.SDS 10:20
PROVIDERS: ATTEND Surgery
DX: Z12.11 Encounter for screening for malignant neoplasm of colon (principal); R91.1 Solitary pulmonary nodule; Z79.899 Other long term (current) drug therapy; Z98.890 Other specified postprocedural states; Z87.891 Personal history of nicotine dependence; Z88.5 Allergy status to narcotic agent
CPT/HCPCS: 00812; J2704; J3010; J7120

== ENCOUNTER 2021-11-16 09:08 | Emergency (ER) | payer OTHER ==
[2021-11-16] MEDS ORDERED: LORazepam 2 MG/ML SDV IVPUSH ONE (09:10)
[2021-11-16 09:51] LABS: CHLORIDE,CL 105 mmol/L (98-107); SODIUM,NA 143 mmol/L (136-145)
[2021-11-16 10:01] LABS: ANION GAP 13.8 mmol/L (5-15)
[2021-11-16 14:44] VITALS: BP 119/60; PULSE 62
== END 2021-11-16 11:20 | disposition home or self-care (01) ==
LOC: VM.ED 09:08
DX: R11.2 Nausea with vomiting, unspecified (principal); Z88.5 Allergy status to narcotic agent; Z88.8 Allergy status to other drugs, medicaments and biological substances
CPT/HCPCS: 36415; 80053; 85025; 96374; 99284-25; J2060

== ENCOUNTER 2023-02-13 02:02 | Emergency (ER) | payer BC, OTHER ==
[2023-02-13] MEDS ORDERED: GI Cocktail Oral Solution 30 ML PO ONE (02:33)
[2023-02-13 02:35] VITALS: BP 148/78; PULSE 74
== END 2023-02-13 03:50 | disposition home or self-care (01) ==
LOC: VM.ED 02:02
DX: K21.9 Gastro-esophageal reflux disease without esophagitis (principal); Z88.5 Allergy status to narcotic agent; Z88.8 Allergy status to other drugs, medicaments and biological substances
CPT/HCPCS: 99283; 99284; A9270-GY